=== PATIENT | female | born 1980 | race Two or more races ===

== ENCOUNTER 2017-01-29 11:51 | Emergency (ER) | payer MEDICAID, OTHER ==
[~2017-01-29] VITALS: Ht 170.2 cm; Wt 70.8 kg
[2017-01-29 12:20] VITALS: BP 111/69
--- NOTE | 2017-01-29 12:21 | Emergency Room Report ---
History of Present Illness General Chief Complaint: Chest Pain Source: Patient Present Illness HPI 36 YOF presents BIBEMS from doctor's office for chest pain. Patient endorses "weeks of chest heaviness" because "I have a lot of stress." Acutely worsened last night, radiating to left neck/jaw, left arm and with "numbness" to left arm and left leg but without assoc loss of strength. Denies history of DVT, PE in self, family. Denies HTN, DM, history of CVA, AMI. Denies smoking, ETOH, drug use. Ems gave nitro X2, ASA which resolved pain. Still with lingering numbness to left arm, leg. Allergies: Coded Allergies: No Known Allergies (Unverified , 01/29/17) Patient History Past Medical History: none Past Surgical History: none Pertinent Family History: none Social History: Denies: alcohol use, drug use, smoking Last Menstrual Period: 01/25/17 Now: No : 2 Para: 2 Immunizations: UTD Reviewed Nursing Documentation: PMH: Agreed, PSxH: Agreed Nursing Documentation-PMH Past Medical History: No Stated History Review of Systems All Other Systems: negative except mentioned in HPI Physical Exam Vital Signs Date Time Temp Pulse Resp B/P Pulse Ox O2 Delivery O2 Flow Rate FiO2 01/29/17 11:43 98.4 87/36 Sp02 EP Interpretation: reviewed, normal General Appearance: normal inspection, well appearing, no apparent distress, alert, GCS 15, non-toxic Head: normocephalic, atraumatic Eyes: bilateral eye EOMI, bilateral eye PERRL ENT: normal ENT inspection, hearing grossly normal, normal voice Neck: normal inspection, full range of motion, supple, no bony tend Respiratory: normal inspection, lungs clear, normal breath sounds, no respiratory distress, no retraction, no wheezing Cardiovascular #1: regular rate, rhythm, no edema Gastrointestinal: normal inspection, normal bowel sounds, non tender, soft, no guarding, no hernia Genitourinary: no CVA tenderness Musculoskeletal: normal inspection, back normal, normal range of motion, Gio' s Sign negative Neurologic: normal inspection, alert, oriented x3, responsive, 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 Was low on differential given only decreased sensation on NIHSS. Patient has no focal muscular weakness. Chest pain: ECG NSR, no ischemia. Troponin 0. Unlikely ACS >12 hours with negative trop, no CAD risk factors. PERC negative so unlikely PE Possible related to stress/anxiety and hyperventilation syndrome Was given PO ativan with improvement in symptoms Requesting PO pain meds Will DC with PMD followup recommended EKG Diagnostic Results Rate: normal Rhythm: NSR ST Segments: no acute changes ASA given to the pt in ED: No Rhythm Strip Diag. Results EP Interpretation: yes Rate: 79 Rhythm: NSR, no ectopy Chest X-Ray Diagnostic Results EP Interpretation: Yes Findings: no consolidation, no effusion, no pneumothorax, no acute cardiopulmonary disease Number of Views: 1 Last Vital Signs Date Time Temp Pulse Resp B/P Pulse Ox O2 Delivery O2 Flow Rate FiO2 01/29/17 11:43 98.4 87/36 Status: improved Disposition: HOME, SELF-CARE LEIDY AGUILAR M.D. Jan 29, 2017 12:21
--- NOTE | 2017-01-29 12:29 | Diagnostic Imaging Report ---
Indication: Left-sided weakness and numbness. Code stroke patient Technique: Continuous helical CT scanning of the head was performed without intravenous contrast material. Axial and coronal 5 mm sections were generated. Radiation dose was minimized using automated exposure control Dose: Total Dose Length Product - DLP [address] Dose Index - CTDIvol(s) 70.38 mGy. Comparison: None Findings: The ventricular system is normal in size and configuration. There is no shift of midline structures. No abnormal extra-axial fluid collections are noted. There is no evidence of intracerebral bleeding. No other abnormal high or low density areas are noted within the brain. Impression: Normal CT scan of the head without contrast material. Code stroke findings phoned to the emergency room at approximately 12:[address] scanner at [facility] is accredited by the [employer] and the scans are performed using protocols designed to limit radiation exposure to as low as reasonably achievable to attain images of sufficient resolution adequate for diagnostic evaluation.
[2017-01-29] MEDS ORDERED: LORazepam 0.5mg tab ORAL ONE (13:00)
[2017-01-29 13:11] LABS: BASOPHILS % (AUTO) 1.1 % (0.0-2.0); EOSINOPHILS % (AUTO) 1.4 % (0.0-3.0); LYMPHOCYTES % (AUTO) 31.3 % (20.0-45.0); MEAN CORPUSCULAR HEMOGLOBIN 28.3 PG (27.0-31.0); MEAN CORPUSCULAR HGB CONC 32.3 G/DL (32.0-36.0); MEAN CORPUSCULAR VOLUME 88 FL (80-99); MEAN PLATELET VOLUME 6.7 FL (6.5-10.1); MONOCYTES % (AUTO) 9.3 % (1.0-10.0); NEUTROPHILS % (AUTO) 56.9 % (45.0-75.0); PLATELET COUNT 346 K/UL (150-450); RED BLOOD COUNT 4.36 M/UL (4.20-5.40); RED CELL DISTRIBUTION WIDTH 13.5 % (11.6-14.8); WHITE BLOOD COUNT 7.8 K/UL (4.8-10.8)
[2017-01-29 13:26] LABS: ALANINE AMINOTRANSFERASE 14 U/L (3-33); ALBUMIN/GLOBULIN RATIO 1.3 (1.0-2.7); ANION GAP 21 (5-15); ASPARTATE AMINO TRANSFERASE 18 U/L (5-40); CALCIUM 9.4 mg/dL (8.6-10.2); CARBON DIOXIDE 19 mEQ/L (20-30); CHLORIDE 98 mEQ/L (98-107); CREATININE 0.7 mg/dL (0.5-0.9); GLOMERULAR FILTRATION RATE > 60 mL/min (>60); HEMOLYSIS 9; POTASSIUM 3.7 mEQ/L (3.4-4.9); SODIUM 138 mEQ/L (135-145); TOTAL PROTEIN 7.6 g/dL (6.6-8.7); TROPONIN I < 0.30 ng/mL (<=0.30)
[2017-01-29 13:36] LABS: CKMB < 1.5 ng/mL (< 3.8)
[2017-01-29] MEDS ORDERED: IBUPROFEN600 MG ORAL (13:45)
--- NOTE | 2017-01-29 13:46 | Diagnostic Imaging Report ---
Indication: Chest pain Technique: One view of the chest Comparison: none Findings: Lungs and pleural spaces are clear. Heart size is normal. Impression: No acute process
[2017-01-29 14:00] VITALS: BP 106/77
--- NOTE | 2017-02-02 14:07 | Cardiology Report ---
APPROVED REPORT EKG Measurement Heart [id number] Normal sinus rhythm Low voltage QRS Borderline ECG
== END 2017-01-29 14:00 | disposition home or self-care (01) ==
LOC: EDBD 11:51 → EMR 12:15
DX: R07.89 Other chest pain (principal); R20.0 Anesthesia of skin; R53.1 Weakness
CPT/HCPCS: 36415; 70450; 71010; 80053; 82550; 82553; 84484; 85025; 93005; 99284